=== PATIENT | female | born 1970 | race Two or more races ===

== ENCOUNTER 2016-08-05 04:01 | Emergency (ER) | payer BC ==
[~2016-08-05] VITALS: Ht 157.5 cm; Wt 68.9 kg
[2016-08-05] MEDS ORDERED: ONDANSETRON HCL 4 MG/2 ML VIAL IM ONE (04:45)
[2016-08-05] MEDS ORDERED: HYDROmorphone HCL 2 MG/ML VL IM ONE (04:45)
[2016-08-05 05:40] VITALS: BP 112/62
== END 2016-08-05 05:43 | disposition home or self-care (01) ==
LOC: ER 04:03
DX: M54.12 Radiculopathy, cervical region (principal); M25.511 Pain in right shoulder; F17.210 Nicotine dependence, cigarettes, uncomplicated; Z88.2 Allergy status to sulfonamides
CPT/HCPCS: 72125; 73030; 96372; 99284; J1170; J2405

== ENCOUNTER → 2016-08-28 | Outpatient (CLI) | payer BC ==
[2016-08-28 08:18] LABS: Basophils # (auto) 0 uL; Basophils % (auto) 0.3 % (0.0-2.0); Eosinophils # (auto) 0.1 uL; Eosinophils % (auto) 0.7 % (0.0-7.0); Hematocrit 42.9 % (36.0-46.0); Hemoglobin 14.2 g/dL (12.2-16.2); Lymphocytes # (auto) 5.1 uL; Lymphocytes % (auto) 33.9 % (10.0-50.0); Mean Corpuscular Hgb Conc. 33.2 g/dL (32.0-36.0); Mean Corpuscular Volume 90.5 fL (80.0-100.0); Mean Platelet Volume 8.2 fL (7.4-10.4); Monocytes # (auto) 0.9 uL; Monocytes % (auto) 5.8 % (0.0-12.0); Neutrophils # (auto) 8.9 uL; Neutrophils % (auto) 59.3 % (37.0-80.0); Platelet Count (auto) 332 10^3/uL (140-450); Red Cell Distribution Width 14.7 % (11.6-16.0)
[2016-08-28 08:42] LABS: Albumin 3.6 g/dL (3.4-5.0); BUN/Creatinine Ratio 15.8; Bilirubin, Total 0.4 mg/dL (0.2-1.0); Calcium 8.8 mg/dL (8.5-10.1); Potassium 3.6 mmol/L (3.5-5.1)
[2016-08-28 09:30] LABS: Urine RBC None Seen /hpf (0 - 4)
[2016-08-28 09:50] LABS: Urine Bilirubin Negative (Negative); Urine Blood Negative /uL (Negative); Urine Color Yellow (Yellow); Urine Glucose Normal (Normal); Urine Ketone Negative (Negative); Urine Mucus FEW (None Seen); Urine Nitrite Negative (Negative); Urine Squamous Epithelial Cell FEW /hpf (<5); Urine Urobilinogen Normal (Negative); Urine pH 6.5 (5.0-8.0)
== END | disposition home or self-care (01) ==
LOC: LAB 07:04
PROVIDERS: ATTEND Internal Medicine
DX: R53.83 Other fatigue (principal); Z00.00 Encounter for general adult medical examination without abnormal findings
CPT/HCPCS: 36415; 80053; 80061; 81001; 82306; 82550; 83036; 84443; 85025; 85652; 86141

== ENCOUNTER 2016-12-12 21:39 | Emergency (ER) | payer BC ==
[~2016-12-12] VITALS: Ht 157.5 cm; Wt 70.9 kg
[2016-12-12 22:08] VITALS: BP 129/79
[2016-12-12 22:29] LABS: Urine Bilirubin Negative (Negative); Urine Blood Negative /uL (Negative); Urine Color Yellow (Yellow); Urine Glucose Normal (Normal); Urine Ketone Negative (Negative); Urine Nitrite Negative (Negative); Urine RBC 1 /hpf (0 - 4); Urine Squamous Epithelial Cell FEW /hpf (<5); Urine pH 5.5 (5.0-8.0)
[2016-12-12 23:03] LABS: Basophils # (auto) 0.1 uL; Basophils % (auto) 0.6 % (0.0-2.0); CONDITION Y; Eosinophils # (auto) 0.4 uL; Eosinophils % (auto) 2.4 % (0.0-7.0); Hematocrit 40.8 % (36.0-46.0); Hemoglobin 13.7 g/dL (12.2-16.2); Lymphocytes # (auto) 4.3 uL; Lymphocytes % (auto) 29.5 % (10.0-50.0); Mean Corpuscular Hemoglobin 30.3 pg (28.0-32.0); Mean Corpuscular Hgb Conc. 33.6 g/dL (32.0-36.0); Mean Corpuscular Volume 90.1 fL (80.0-100.0); Mean Platelet Volume 8.1 fL (7.4-10.4); Monocytes # (auto) 0.8 uL; Monocytes % (auto) 5.6 % (0.0-12.0); Neutrophils # (auto) 9.1 uL; Neutrophils % (auto) 61.9 % (37.0-80.0); Platelet Count (auto) 326 10^3/uL (140-450); White Blood Cell 14.6 10^3/uL (4.4-10.8)
[2016-12-12 23:33] LABS: Magnesium 2.2 mg/dL (1.6-2.6); Potassium 4.1 mmol/L (3.5-5.1)
[2016-12-12 23:37] LABS: Albumin 3.6 g/dL (3.4-5.0); BUN/Creatinine Ratio 20.8; Bilirubin, Total 0.2 mg/dL (0.2-1.0); Calcium 8.6 mg/dL (8.5-10.1); Total Protein 7.1 g/dL (6.4-8.2)
== END 2016-12-13 03:29 | disposition left against medical advice (07) ==
LOC: ER 21:58
DX: R10.12 Left upper quadrant pain (principal); R19.7 Diarrhea, unspecified; Z53.21 Procedure and treatment not carried out due to patient leaving prior to being seen by health care provider
CPT/HCPCS: 36415; 80053; 81001; 83690; 83735; 84702; 85025

== ENCOUNTER 2017-01-07 21:58 | Emergency (ER) | payer BC ==
[~2017-01-07] VITALS: Ht 157.5 cm; Wt 69.4 kg
[2017-01-07 22:22] VITALS: BP 140/71
[2017-01-07 22:41] LABS: Urine Bilirubin Negative (Negative); Urine Blood 2+ /uL (Negative); Urine Color Yellow (Yellow); Urine Glucose Normal (Normal); Urine Ketone Negative (Negative); Urine Nitrite Negative (Negative); Urine RBC 1 /hpf (0 - 4); Urine Squamous Epithelial Cell FEW /hpf (<5)
== END 2017-01-08 03:00 | disposition home or self-care (01) ==
LOC: ER 22:03
DX: N34.3 Urethral syndrome, unspecified (principal); Z88.2 Allergy status to sulfonamides
CPT/HCPCS: 81001

== ENCOUNTER → 2017-01-13 | Outpatient (CLI) | payer BC ==
[2017-01-13 10:50] LABS: Urine Bilirubin Negative (Negative); Urine Blood Negative /uL (Negative); Urine Color Yellow (Yellow); Urine Glucose Normal (Normal); Urine Ketone Negative (Negative); Urine Nitrite Negative (Negative); Urine RBC <1 /hpf (0 - 4); Urine Squamous Epithelial Cell FEW /hpf (<5); Urine Urobilinogen Normal (Negative)
== END | disposition home or self-care (01) ==
LOC: LAB 10:12
PROVIDERS: ATTEND Internal Medicine
DX: R10.9 Unspecified abdominal pain (principal)
CPT/HCPCS: 81001; 81025

== ENCOUNTER 2017-01-14 19:31 | Emergency (ER) | payer BC ==
[~2017-01-14] VITALS: Ht 157.5 cm; Wt 70.3 kg
[2017-01-14 21:21] LABS: Basophils # (auto) 0.2 uL; Basophils % (auto) 1.2 % (0.0-2.0); CONDITION Y; Eosinophils # (auto) 0.3 uL; Eosinophils % (auto) 2.6 % (0.0-7.0); Hematocrit 41.5 % (36.0-46.0); Lymphocytes # (auto) 4.4 uL; Lymphocytes % (auto) 33.8 % (10.0-50.0); Mean Corpuscular Hgb Conc. 33.7 g/dL (32.0-36.0); Mean Platelet Volume 7.9 fL (7.4-10.4); Monocytes # (auto) 0.9 uL; Monocytes % (auto) 6.7 % (0.0-12.0); Neutrophils # (auto) 7.3 uL; Neutrophils % (auto) 55.7 % (37.0-80.0); Platelet Count (auto) 292 10^3/uL (140-450); Red Cell Distribution Width 14.2 % (11.6-16.0)
[2017-01-14 21:39] LABS: Albumin 3.7 g/dL (3.4-5.0); BUN/Creatinine Ratio 18.3; Calcium 8.4 mg/dL (8.5-10.1)
[2017-01-14 21:42] LABS: Bilirubin, Total 0.2 mg/dL (0.2-1.0); Total Protein 7.3 g/dL (6.4-8.2)
[2017-01-15] MEDS ORDERED: MORPHINE SULF INJ 2 MG/ML SYRINGE 1ML IV ONE (00:15)
[2017-01-15] MEDS ORDERED: ONDANSETRON HCL 4 MG/2 ML VIAL IV ONE (00:15)
[2017-01-15] MEDS ORDERED: SODIUM CHLORIDE 0.9% 1,000 ML IV ONE (00:15)
[2017-01-15] MEDS ORDERED: metroNIDAZOLE 500MG/100ML 100 ML IV ONE (00:15)
[2017-01-15] MEDS ORDERED: cefTRIAXone 1GM/50ML D5W 50 ML IV ONE (00:15)
[2017-01-15 04:58] LABS: Urine Bilirubin Negative (Negative); Urine Blood 2+ /uL (Negative); Urine Color Yellow (Yellow); Urine Glucose Normal (Normal); Urine Ketone Negative (Negative); Urine Nitrite Negative (Negative); Urine RBC 1 /hpf (0 - 4); Urine Squamous Epithelial Cell FEW /hpf (<5); Urine Urobilinogen Normal (Negative); Urine pH 5.5 (5.0-8.0)
[2017-01-15 06:05] VITALS: BP 104/68
== END 2017-01-15 06:45 | disposition home or self-care (01) ==
LOC: ER 19:31
DX: K52.9 Noninfective gastroenteritis and colitis, unspecified (principal); F17.210 Nicotine dependence, cigarettes, uncomplicated; Z88.8 Allergy status to other drugs, medicaments and biological substances
CPT/HCPCS: 36415; 74176; 80053; 81001; 83690; 84702; 85025; 96365; 96366; 96368; 96375; 99285; J0696; J2270; J2405; J3490; J7030

== ENCOUNTER 2017-04-10 21:26 | Emergency (ER) | payer BC ==
[~2017-04-10] VITALS: Ht 154.9 cm; Wt 70.3 kg
[2017-04-10 21:41] VITALS: BP 122/75
[2017-04-11] MEDS ORDERED: ceFAZolin 1GM/50ML 50 ML IV ONE (07:26)
== END 2017-04-11 04:13 | disposition left against medical advice (07) ==
LOC: ER 21:26
DX: R51 Headache (principal); R11.0 Nausea; Z53.21 Procedure and treatment not carried out due to patient leaving prior to being seen by health care provider
CPT/HCPCS: 70450; 99281; J0690

== ENCOUNTER 2017-04-11 07:22 | Inpatient (IN) | payer BC ==
[2017-04-08 13:02] LABS: Basophils # (auto) 0.1 uL; Basophils % (auto) 0.4 % (0.0-2.0); Eosinophils # (auto) 0.2 uL; Eosinophils % (auto) 1.6 % (0.0-7.0); Hematocrit 43.6 % (36.0-46.0); Hemoglobin 14.4 g/dL (12.2-16.2); Lymphocytes # (auto) 3.4 uL; Lymphocytes % (auto) 25.5 % (10.0-50.0); Mean Corpuscular Hemoglobin 30.2 pg (28.0-32.0); Mean Corpuscular Hgb Conc. 33.1 g/dL (32.0-36.0); Mean Corpuscular Volume 91.1 fL (80.0-100.0); Mean Platelet Volume 7.9 fL (6.9-10.8); Monocytes # (auto) 0.7 uL; Monocytes % (auto) 5.4 % (0.0-12.0); Neutrophils % (auto) 67.1 % (37.0-80.0); Nucleated Red Blood Cells % 0.1 %; Platelet Count (auto) 293 10^3/uL (140-450); Red Cell Distribution Width 14.8 % (11.8-14.3); White Blood Cell 13.4 10^3/uL (4.4-10.8)
[2017-04-08 13:11] LABS: INR 0.92 (0.9-1.15); Partial Thromboplastin Time 29.6 sec (22.64-33.71)
[2017-04-08 13:13] LABS: Urine Bilirubin Negative (Negative); Urine Blood 2+ /uL (Negative); Urine Color Yellow (Yellow); Urine Glucose Normal (Normal); Urine Ketone Negative (Negative); Urine Nitrite Negative (Negative); Urine Urobilinogen Normal (Negative); Urine pH 6.5 (5.0-8.0)
[2017-04-08 13:54] LABS: Albumin 3.9 g/dL (3.4-5.0); BUN/Creatinine Ratio 23.2; Bilirubin, Total 0.3 mg/dL (0.2-1.0); Calcium 9.2 mg/dL (8.5-10.1); Potassium 4.3 mmol/L (3.5-5.1); Total Protein 7.7 g/dL (6.4-8.2)
[~2017-04-11] VITALS: Ht 154.9 cm; Wt 77.2 kg
[2017-04-11] MEDS ORDERED: PROPOFOL 10 MG/ML 20 ML IV ONE (07:34)
[2017-04-11] MEDS ORDERED: ONDANSETRON HCL 4 MG/2 ML VIAL ONE (07:34)
[2017-04-11] MEDS ORDERED: fentaNYL CITRATE 100 MCG/2 ML VL ONE (07:34)
[2017-04-11] MEDS ORDERED: MIDAZOLAM HCL 1MG/1ML-2 ML VIAL ONE (07:34)
[2017-04-11] MEDS ORDERED: METOCLOPRAMIDE HCL 5MG/ml INJ 2ml VIAL IV ONE (09:15)
[2017-04-11] MEDS ORDERED: KETOROLAC TROMETH 30 MG/ML 1ML VIAL IV ONE (09:15)
[2017-04-11] MEDS ORDERED: ceFAZolin 1GM VL IV ONE (09:46)
[2017-04-11] MEDS ORDERED: ONDANSETRON HCL 4 MG/2 ML VIAL IV PRN (10:45)
[2017-04-11] MEDS: HYDROmorphone HCL 2 MG/ML VL IV PRN ×3 (11:00→11:17)
[2017-04-11 12:43] LABS: Basophils # (auto) 0 uL; Basophils % (auto) 0.4 % (0.0-2.0); Eosinophils # (auto) 0.2 uL; Eosinophils % (auto) 1.7 % (0.0-7.0); Hematocrit 41.4 % (36.0-46.0); Hemoglobin 13.7 g/dL (12.2-16.2); Lymphocytes # (auto) 2.7 uL; Lymphocytes % (auto) 24.4 % (10.0-50.0); Mean Platelet Volume 7.3 fL (6.9-10.8); Monocytes # (auto) 0.7 uL; Monocytes % (auto) 6.2 % (0.0-12.0); Neutrophils # (auto) 7.3 uL; Neutrophils % (auto) 67.3 % (37.0-80.0); Nucleated Red Blood Cells % 0.1 %; Platelet Count (auto) 259 10^3/uL (140-450); Red Cell Distribution Width 14.7 % (11.8-14.3); White Blood Cell 10.9 10^3/uL (4.4-10.8)
[2017-04-11 13:02] LABS: BUN/Creatinine Ratio 13.2; Calcium 8.7 mg/dL (8.5-10.1); Potassium 4.2 mmol/L (3.5-5.1)
[2017-04-11] MEDS ORDERED: HYDROmorphone HCL 2 MG/ML VL IV PRN (13:30)
[2017-04-11] MEDS ORDERED: NITROGLYCERIN 0.4 MG SL TAB SL PRN ×2 (13:30)
[2017-04-11] MEDS: SODIUM CHLOR 0.9% PF (SALINE LOCK) 10ML VIAL IV SCH (14:00)
[2017-04-11 16:10] VITALS: BP 99/50
[2017-04-11 17:00] VITALS: BP 99/50
[2017-04-11] MEDS: LACTATED RINGER'S 1,000 ML IV SCH ×3 (17:12→23:52)
[2017-04-11 17:40] VITALS: BP 99/50
[2017-04-11] MEDS ORDERED: ACETAMINOPHEN 325 MG TAB PO PRN (18:30)
[2017-04-11] MEDS ORDERED: ASPirin-EC 81 mg tab PO ONE (18:45)
[2017-04-11] MEDS ORDERED: ATORVASTATIN 20 MG TAB PO ONE (18:45)
[2017-04-11] MEDS ORDERED: SODIUM CHLORIDE 0.9% 2,250 ML IV ONE (18:45)
[2017-04-11] MEDS ORDERED: IBUPROFEN 600 MG TAB PO PRN (19:00)
[2017-04-11] MEDS ORDERED: ENOXAPARIN SOD 30 MG/0.3 ML SYRINGE IV ONE (19:30)
[2017-04-11] MEDS ORDERED: LEVOFLOXACIN 500MG 100 ML IV ONE (19:45)
[2017-04-11] MEDS ORDERED: ALBUTEROL SULF 2.5 MG/0.5ML(0.5%) NEB SOLN NEB PRN (19:45)
[2017-04-11 20:00] VITALS: BP 127/79
[2017-04-11] MEDS: HYDROcodone-ACET 5/325MG TAB PO PRN (20:33)
[2017-04-11 20:38] LABS: Hematocrit 37.3 % (36.0-46.0); Hemoglobin 12.4 g/dL (12.2-16.2)
[2017-04-12] VITALS (7 sets, daily range): BP systolic 104–127; BP diastolic 52–84
[2017-04-12] MEDS: SODIUM CHLOR 0.9% PF (SALINE LOCK) 10ML VIAL IV SCH ×4 (03:35→22:53)
[2017-04-12 05:29] LABS: Basophils # (auto) 0 uL; Basophils % (auto) 0.4 % (0.0-2.0); Eosinophils # (auto) 0.2 uL; Eosinophils % (auto) 1.9 % (0.0-7.0); Hematocrit 36.8 % (36.0-46.0); Hemoglobin 12.4 g/dL (12.2-16.2); Lymphocytes # (auto) 3.2 uL; Mean Corpuscular Hemoglobin 30.5 pg (28.0-32.0); Mean Corpuscular Hgb Conc. 33.6 g/dL (32.0-36.0); Mean Corpuscular Volume 90.6 fL (80.0-100.0); Mean Platelet Volume 7.6 fL (6.9-10.8); Monocytes # (auto) 0.6 uL; Monocytes % (auto) 5.8 % (0.0-12.0); Neutrophils # (auto) 6.2 uL; Neutrophils % (auto) 60.9 % (37.0-80.0); Platelet Count (auto) 245 10^3/uL (140-450); Red Cell Distribution Width 14.5 % (11.8-14.3); White Blood Cell 10.2 10^3/uL (4.4-10.8)
[2017-04-12 06:04] LABS: BUN/Creatinine Ratio 15.5; Bilirubin, Total 0.4 mg/dL (0.2-1.0); Potassium 3.7 mmol/L (3.5-5.1)
[2017-04-12] MEDS: LACTATED RINGER'S 1,000 ML IV SCH ×3 (06:32→19:52)
[2017-04-12] MEDS: LORazepam 0.5 MG TAB PO PRN ×2 (10:40→19:51)
[2017-04-12] MEDS: ASPirin-EC 81 mg tab PO SCH (10:42)
[2017-04-12] MEDS: NICOTINE 14 MG/24HR TOPICAL PATCH TD SCH (10:42)
[2017-04-12] MEDS: LEVOFLOXACIN 500MG 100 ML IV SCH (10:43)
[2017-04-12] MEDS: HYDROmorphone HCL 2 MG/ML VL IV PRN ×2 (11:58→19:51)
[2017-04-12] MEDS ORDERED: ENOXAPARIN SOD 30 MG/0.3 ML SYRINGE IV ONE (12:45)
[2017-04-12] MEDS ORDERED: AZITHROMYCIN 250 MG TAB PO ONE (13:45)
[2017-04-12] MEDS: BOOST PLUS 8 ounce PO SCH (17:34)
[2017-04-12] MEDS: ATORVASTATIN 20 MG TAB PO SCH (22:54)
[2017-04-13] VITALS (7 sets, daily range): BP systolic 91–132; BP diastolic 62–72
[2017-04-13] MEDS: LACTATED RINGER'S 1,000 ML IV SCH ×3 (02:32→15:52)
[2017-04-13] MEDS: HYDROmorphone HCL 2 MG/ML VL IV PRN ×4 (02:37→23:15)
[2017-04-13 05:26] LABS: Basophils # (auto) 0 uL; Basophils % (auto) 0.5 % (0.0-2.0); Eosinophils # (auto) 0.3 uL; Eosinophils % (auto) 3.2 % (0.0-7.0); Hematocrit 39.4 % (36.0-46.0); Hemoglobin 13.1 g/dL (12.2-16.2); Lymphocytes # (auto) 2.5 uL; Lymphocytes % (auto) 29.8 % (10.0-50.0); Mean Corpuscular Hemoglobin 30.3 pg (28.0-32.0); Mean Corpuscular Hgb Conc. 33.3 g/dL (32.0-36.0); Mean Corpuscular Volume 91.1 fL (80.0-100.0); Mean Platelet Volume 7.5 fL (6.9-10.8); Monocytes # (auto) 0.6 uL; Monocytes % (auto) 7.4 % (0.0-12.0); Neutrophils # (auto) 4.9 uL; Neutrophils % (auto) 59.1 % (37.0-80.0); Platelet Count (auto) 250 10^3/uL (140-450); Red Cell Distribution Width 14.2 % (11.8-14.3); White Blood Cell 8.4 10^3/uL (4.4-10.8)
[2017-04-13 05:41] LABS: Albumin 3.1 g/dL (3.4-5.0); BUN/Creatinine Ratio 16.1; Calcium 8.1 mg/dL (8.5-10.1); Potassium 3.9 mmol/L (3.5-5.1)
[2017-04-13] MEDS: SODIUM CHLOR 0.9% PF (SALINE LOCK) 10ML VIAL IV SCH ×3 (05:56→22:00)
[2017-04-13 05:58] LABS: Bilirubin, Total 0.2 mg/dL (0.2-1.0); Total Protein 6.3 g/dL (6.4-8.2)
[2017-04-13] MEDS: BOOST PLUS 8 ounce PO SCH ×3 (08:00→18:00)
[2017-04-13] MEDS ORDERED: DOCUSATE SOD 100 MG CAP PO PRN (09:00)
[2017-04-13] MEDS: ASPirin-EC 81 mg tab PO SCH (09:34)
[2017-04-13] MEDS: AZITHROMYCIN 250 MG TAB PO SCH (09:35)
[2017-04-13] MEDS: LEVOFLOXACIN 500MG 100 ML IV SCH (09:35)
[2017-04-13] MEDS: NICOTINE 14 MG/24HR TOPICAL PATCH TD SCH (10:00)
[2017-04-13] MEDS: LORazepam 0.5 MG TAB PO PRN (12:39)
[2017-04-13] MEDS: ATORVASTATIN 20 MG TAB PO SCH (22:00)
[2017-04-14] VITALS: BP 104/58
[2017-04-14 05:23] LABS: Basophils # (auto) 0.1 uL; Basophils % (auto) 0.7 % (0.0-2.0); Eosinophils # (auto) 0.3 uL; Hemoglobin 13.9 g/dL (12.2-16.2); Lymphocytes % (auto) 35.9 % (10.0-50.0); Mean Corpuscular Hemoglobin 29.9 pg (28.0-32.0); Mean Corpuscular Hgb Conc. 33.1 g/dL (32.0-36.0); Mean Corpuscular Volume 90.2 fL (80.0-100.0); Mean Platelet Volume 7.6 fL (6.9-10.8); Monocytes # (auto) 0.6 uL; Monocytes % (auto) 7.1 % (0.0-12.0); Neutrophils # (auto) 4.4 uL; Neutrophils % (auto) 52.3 % (37.0-80.0); Nucleated Red Blood Cells % 0.1 %; Platelet Count (auto) 261 10^3/uL (140-450); Red Cell Distribution Width 14.4 % (11.8-14.3); White Blood Cell 8.4 10^3/uL (4.4-10.8)
[2017-04-14 05:42] LABS: Albumin 3.2 g/dL (3.4-5.0); BUN/Creatinine Ratio 19.7; Calcium 8.5 mg/dL (8.5-10.1); Potassium 3.8 mmol/L (3.5-5.1)
[2017-04-14 05:58] LABS: Bilirubin, Total 0.2 mg/dL (0.2-1.0); Total Protein 6.6 g/dL (6.4-8.2)
[2017-04-14] MEDS: SODIUM CHLOR 0.9% PF (SALINE LOCK) 10ML VIAL IV SCH ×3 (06:00→21:05)
[2017-04-14 08:00] VITALS: BP 126/78
[2017-04-14] MEDS: BOOST PLUS 8 ounce PO SCH ×3 (08:00→18:11)
[2017-04-14] MEDS ORDERED: LIDOCAINE 2%HCL (LOCAL ANESTH.) INJ 20ML MDV ONE (08:46)
[2017-04-14] MEDS ORDERED: IOHEXOL 350 MG/ML 100ML IJ ONE ×2 (08:46→09:53)
[2017-04-14] MEDS ORDERED: MIDAZOLAM HCL 1MG/1ML-2 ML VIAL ONE (09:55)
[2017-04-14] MEDS ORDERED: fentaNYL CITRATE 100 MCG/2 ML VL ONE (09:55)
[2017-04-14] MEDS ORDERED: SODIUM CHL 0.9% 50 ML ONE ×2 (09:58)
[2017-04-14] MEDS ORDERED: ANGIOMAX 250 MG VIAL IV ONE (09:58)
[2017-04-14] MEDS ORDERED: CLOPIDOGREL 300 MG TAB ONE (10:14)
[2017-04-14] MEDS: ASPirin-EC 81 mg tab PO SCH (11:26)
[2017-04-14] MEDS: AZITHROMYCIN 250 MG TAB PO SCH (11:26)
[2017-04-14] MEDS: LEVOFLOXACIN 500MG 100 ML IV SCH (11:26)
[2017-04-14] MEDS: NICOTINE 14 MG/24HR TOPICAL PATCH TD SCH (11:31)
[2017-04-14 11:42] VITALS: BP 110/74
[2017-04-14] MEDS: HYDROcodone-ACET 5/325MG TAB PO PRN (14:21)
[2017-04-14] MEDS: LORazepam 0.5 MG TAB PO PRN ×2 (14:21→20:29)
[2017-04-14 16:00] VITALS: BP 114/67
[2017-04-14 20:00] VITALS: BP 131/77
[2017-04-14] MEDS: ATORVASTATIN 20 MG TAB PO SCH (20:29)
[2017-04-14] MEDS: HYDROmorphone HCL 2 MG/ML VL IV PRN (21:05)
[2017-04-15] VITALS: BP 103/62
[2017-04-15 03:49] VITALS: BP 99/65
[2017-04-15 05:17] LABS: Calcium 8.9 mg/dL (8.5-10.1); Potassium 3.7 mmol/L (3.5-5.1)
[2017-04-15] MEDS: SODIUM CHLOR 0.9% PF (SALINE LOCK) 10ML VIAL IV SCH (05:44)
[2017-04-15 07:30] VITALS: BP 109/61
[2017-04-15] MEDS: BOOST PLUS 8 ounce PO SCH (08:04)
[2017-04-15] MEDS ORDERED: ASP81EC PO (08:46)
[2017-04-15] MEDS ORDERED: METO50TA7 PO (08:46)
[2017-04-15] MEDS ORDERED: ATOR20TA50 PO (08:46)
[2017-04-15] MEDS ORDERED: CLOP75TA28 PO (08:46)
[2017-04-15] MEDS: ASPirin-EC 81 mg tab PO SCH (09:09)
[2017-04-15] MEDS: AZITHROMYCIN 250 MG TAB PO SCH (09:09)
[2017-04-15] MEDS: NICOTINE 14 MG/24HR TOPICAL PATCH TD SCH (09:12)
[2017-04-15] MEDS ORDERED: METOPROLOL SUCCINATE XL 50 MG TAB PO SCH (10:00)
[2017-04-15] MEDS ORDERED: CLOPIDOGREL BISULFATE 75 MG TAB PO SCH (10:00)
[2017-04-15 10:09] VITALS: BP 109/61
[2017-04-15 10:19] VITALS: BP 109/61
[2017-04-15 10:31] VITALS: BP 109/61
== END 2017-04-15 11:15 | disposition home or self-care (01) | DRG 246 ==
LOC: SUR 07:22 → WEST WING 07:23 → DOU IN ICU 20:19
PROVIDERS: ADMIT Specialist; ATTEND Internal Medicine
PROC: 0UDB8ZZ Extraction of Endometrium, Via Natural or Artificial Opening Endoscopic (ICD-10-PCS; principal; 2017-04-11 09:46)
PROC: 027034Z Dilation of Coronary Artery, One Artery with Drug-eluting Intraluminal Device, Percutaneous Approach (ICD-10-PCS; 2017-04-14)
PROC: 4A023N7 Measurement of Cardiac Sampling and Pressure, Left Heart, Percutaneous Approach (ICD-10-PCS; 2017-04-14)
PROC: B2111ZZ Fluoroscopy of Multiple Coronary Arteries using Low Osmolar Contrast (ICD-10-PCS; 2017-04-14)
PROC: B2151ZZ Fluoroscopy of Left Heart using Low Osmolar Contrast (ICD-10-PCS; 2017-04-14)
DX: I21.4 Non-ST elevation (NSTEMI) myocardial infarction (principal); J18.9 Pneumonia, unspecified organism; E44.0 Moderate protein-calorie malnutrition; I42.9 Cardiomyopathy, unspecified; J98.11 Atelectasis; E78.00 Pure hypercholesterolemia, unspecified; E78.5 Hyperlipidemia, unspecified; F17.210 Nicotine dependence, cigarettes, uncomplicated; I25.10 Atherosclerotic heart disease of native coronary artery without angina pectoris; K57.90 Diverticulosis of intestine, part unspecified, without perforation or abscess without bleeding; N85.4 Malposition of uterus; N92.0 Excessive and frequent menstruation with regular cycle; Z95.5 Presence of coronary angioplasty implant and graft; Z68.32 Body mass index [BMI] 32.0-32.9, adult
CPT/HCPCS: 36415; 71010; 80048; 80053; 80061; 81003; 84484; 84702; 85014; 85018; 85025; 85610; 85730; 86850; 86900; 86901; 87081; 93005; 93306; 99152; 99153; C1874; J0690; J1956; J2250; J2405; J2704

== ENCOUNTER → 2017-06-11 | Outpatient (CLI) | payer BC ==
[~2017-06-11] VITALS: Ht 154.9 cm; Wt 69.4 kg
[~2017-06-11] MED LIST: ASP81EC PO; ATOR20TA50 PO; CLOP75TA28 PO; METO50TA7 PO
== END | disposition home or self-care (01) ==
LOC: Rad HDHVI 07:59
PROVIDERS: ATTEND Internal Medicine Cardiovascular Disease
DX: I20.0 Unstable angina (principal); I21.09 ST elevation (STEMI) myocardial infarction involving other coronary artery of anterior wall
CPT/HCPCS: 78452; 93017; 96374; A9500

== ENCOUNTER 2017-06-28 09:20 | Emergency (ER) | payer BC ==
[~2017-06-28] VITALS: Ht 157.5 cm; Wt 69.4 kg
[2017-06-28 10:22] VITALS: BP 128/77
== END 2017-06-28 11:30 | disposition home or self-care (01) ==
LOC: ER 09:20
DX: N61.0 Mastitis without abscess (principal); F17.210 Nicotine dependence, cigarettes, uncomplicated; Z88.2 Allergy status to sulfonamides; Z98.51 Tubal ligation status

== ENCOUNTER 2017-07-22 06:06 | Emergency (ER) | payer BC ==
[~2017-07-22] VITALS: Ht 162.6 cm; Wt 68.5 kg
[2017-07-22 07:10] LABS: Basophils # (auto) 0.1 uL; Basophils % (auto) 0.6 % (0.0-2.0); Eosinophils # (auto) 0.2 uL; Eosinophils % (auto) 1.4 % (0.0-7.0); Hematocrit 41.7 % (36.0-46.0); Hemoglobin 13.7 g/dL (12.2-16.2); Lymphocytes # (auto) 2.3 uL; Lymphocytes % (auto) 19.4 % (10.0-50.0); Mean Corpuscular Hemoglobin 30.1 pg (28.0-32.0); Mean Corpuscular Volume 91.3 fL (80.0-100.0); Monocytes # (auto) 0.7 uL; Monocytes % (auto) 5.6 % (0.0-12.0); Neutrophils # (auto) 8.8 uL; Platelet Count (auto) 291 10^3/uL (140-450); Red Blood Cells 4.56 10^6/uL (4.0-5.20); Red Cell Distribution Width 14.2 % (11.8-14.3)
[2017-07-22 07:23] LABS: Albumin 3.7 g/dL (3.4-5.0); Anion Gap 4 (5-15); Blood Urea Nitrogen 9 mg/dL (7-18); Calcium 8.7 mg/dL (8.5-10.1); Carbon Dioxide 28 mmol/L (21-32); Chloride 105 mmol/L (98-107); Glucose 102 mg/dL (74-106); Potassium 3.9 mmol/L (3.5-5.1); Sodium 137 mmol/L (136-145)
[2017-07-22 07:26] LABS: Alanine Aminotransferase 23 U/L (13-56)
[2017-07-22 07:47] LABS: Alkaline Phosphatase 61 U/L (45-117); Aspartate Aminotransferase 20 U/L (15-37); BUN/Creatinine Ratio 11.4; Bilirubin, Total 0.4 mg/dL (0.2-1.0); GFR African American 101 mL/min; GFR Non-African American 83 mL/min
[2017-07-22 08:26] LABS: Urine Bacteria FEW /hpf (None Seen); Urine Blood 3+ /uL (Negative); Urine Mucus FEW (None Seen); Urine Specific Gravity 1.019 (1.001-1.035); Urine WBC 16 /hpf (0 - 5)
[2017-07-22 10:27] VITALS: BP 117/72
== END 2017-07-22 10:28 | disposition home or self-care (01) ==
LOC: ER 06:06 → EDBD 06:06 → ER 10:28
DX: R07.89 Other chest pain (principal); N39.0 Urinary tract infection, site not specified; I25.2 Old myocardial infarction; F17.210 Nicotine dependence, cigarettes, uncomplicated; Z88.2 Allergy status to sulfonamides; Z79.82 Long term (current) use of aspirin; Z79.01 Long term (current) use of anticoagulants; Z79.899 Other long term (current) drug therapy
CPT/HCPCS: 36415; 71045; 80053; 81001; 81025; 83880; 84484; 85025; 93005

== ENCOUNTER → 2017-09-24 | Outpatient (CLI) | payer BC ==
[2017-09-24 16:24] LABS: Basophils # (auto) 0 uL; Basophils % (auto) 0.4 % (0.0-2.0); Eosinophils # (auto) 0.2 uL; Eosinophils % (auto) 1.5 % (0.0-7.0); Hematocrit 43.3 % (36.0-46.0); Hemoglobin 14.2 g/dL (12.2-16.2); Lymphocytes # (auto) 3.2 uL; Mean Corpuscular Hemoglobin 29.6 pg (28.0-32.0); Mean Corpuscular Hgb Conc. 32.7 g/dL (32.0-36.0); Mean Corpuscular Volume 90.5 fL (80.0-100.0); Monocytes # (auto) 0.6 uL; Monocytes % (auto) 4.4 % (0.0-12.0); Neutrophils # (auto) 8.8 uL; Neutrophils % (auto) 68.7 % (37.0-80.0); Nucleated Red Blood Cells % 0.5 %; Platelet Count (auto) 308 10^3/uL (140-450); Red Blood Cells 4.78 10^6/uL (4.0-5.20); Red Cell Distribution Width 14.6 % (11.8-14.3); White Blood Cell 12.8 10^3/uL (4.4-10.8)
[2017-09-24 16:27] LABS: Alanine Aminotransferase 27 U/L (13-56); Albumin 4.1 g/dL (3.4-5.0); Alkaline Phosphatase 65 U/L (45-117); Anion Gap 9 (5-15); Aspartate Aminotransferase 18 U/L (15-37); BUN/Creatinine Ratio 12.5; Bilirubin, Direct < 0.1 mg/dL (0-0.2); Bilirubin, Total 0.2 mg/dL (0.2-1.0); Blood Urea Nitrogen 9 mg/dL (7-18); Calcium 9.2 mg/dL (8.5-10.1); Carbon Dioxide 24 mmol/L (21-32); Chloride 106 mmol/L (98-107); Cholesterol 239 mg/dL (< 200); GFR African American 112 mL/min; GFR Non-African American 93 mL/min; Glucose 96 mg/dL (74-106); HDL Cholesterol 42 mg/dL (40-59); LDL Cholesterol 163 mg/dL (< 100); Potassium 3.7 mmol/L (3.5-5.1); Sodium 139 mmol/L (136-145); Total Protein 8.1 g/dL (6.4-8.2); Triglycerides 240 mg/dL (< 150)
== END | disposition home or self-care (01) ==
LOC: LAB 11:30
PROVIDERS: ATTEND Internal Medicine Cardiovascular Disease
DX: E78.5 Hyperlipidemia, unspecified (principal); D64.9 Anemia, unspecified; I10 Essential (primary) hypertension; K74.1 Hepatic sclerosis; E11.9 Type 2 diabetes mellitus without complications; E03.9 Hypothyroidism, unspecified; E55.9 Vitamin D deficiency, unspecified
CPT/HCPCS: 36415; 80048; 80061; 80076; 82306; 83036; 84439; 84443; 85025

== ENCOUNTER → 2018-04-06 | Outpatient (CLI) | payer BC ==
[~2018-04-06] MED LIST changes: +MET5XLT PO; -METO50TA7 PO
[2018-04-06 12:35] LABS: Alanine Aminotransferase 36 U/L (13-56); Albumin 3.6 g/dL (3.4-5.0); Aspartate Aminotransferase 23 U/L (15-37); Bilirubin, Direct < 0.1 mg/dL (0-0.2)
[2018-04-06 12:38] LABS: Alkaline Phosphatase 64 U/L (45-117); Bilirubin, Total 0.2 mg/dL (0.2-1.0); Cholesterol 200 mg/dL (< 200); HDL Cholesterol 45 mg/dL (40-59); LDL Cholesterol 137 mg/dL (< 100); Total Protein 7.4 g/dL (6.4-8.2); Triglycerides 101 mg/dL (< 150)
== END | disposition home or self-care (01) ==
LOC: LAB 07:57
PROVIDERS: ATTEND Internal Medicine Cardiovascular Disease
DX: E78.5 Hyperlipidemia, unspecified (principal); K74.1 Hepatic sclerosis
CPT/HCPCS: 36415; 80061; 80076

== ENCOUNTER → 2018-10-09 | Outpatient (CLI) | payer BC ==
[2018-10-09 08:19] LABS: Urine WBC None Seen /hpf (0 - 5)
[2018-10-09 08:32] LABS: Basophils # (auto) 0 uL; Basophils % (auto) 0.5 % (0.0-2.0); Eosinophils # (auto) 0.2 uL; Eosinophils % (auto) 3.1 % (0.0-7.0); Hematocrit 41.4 % (36.0-46.0); Hemoglobin 13.4 g/dL (12.2-16.2); Lymphocytes # (auto) 2.1 uL; Lymphocytes % (auto) 27.8 % (10.0-50.0); Mean Corpuscular Hemoglobin 28.8 pg (28.0-32.0); Mean Corpuscular Hgb Conc. 32.5 g/dL (32.0-36.0); Mean Corpuscular Volume 88.6 fL (80.0-100.0); Monocytes # (auto) 0.5 uL; Monocytes % (auto) 7.4 % (0.0-12.0); Neutrophils # (auto) 4.5 uL; Neutrophils % (auto) 61.2 % (37.0-80.0); Nucleated Red Blood Cells % 0.1 %; Platelet Count (auto) 252 10^3/uL (140-450); Red Blood Cells 4.67 10^6/uL (4.0-5.20); Red Cell Distribution Width 14.9 % (11.8-14.3); White Blood Cell 7.4 10^3/uL (4.4-10.8)
[2018-10-09 08:42] LABS: Urine Bacteria NONE SEEN /hpf (None Seen); Urine Blood Negative /uL (Negative); Urine Specific Gravity 1.016 (1.001-1.035)
[2018-10-09 09:23] LABS: Calcium 8.8 mg/dL (8.5-10.1); Potassium 4.1 mmol/L (3.5-5.1)
[2018-10-09 09:27] LABS: Folate (Folic Acid) 16.99 ng/mL (5.38-24)
[2018-10-09 09:30] LABS: Albumin 3.8 g/dL (3.4-5.0); BUN/Creatinine Ratio 17.1; Bilirubin, Total 0.4 mg/dL (0.2-1.0); Total Protein 7.1 g/dL (6.4-8.2)
== END | disposition home or self-care (01) ==
LOC: LAB 07:12
PROVIDERS: ATTEND Nurse Practitioner
DX: E78.5 Hyperlipidemia, unspecified (principal)
CPT/HCPCS: 36415; 80053; 80061; 81001; 82306; 82607; 82746; 83036; 84443; 85025

== ENCOUNTER → 2018-12-24 | Outpatient (CLI) | payer BC ==
[~2018-12-24] VITALS: Ht 154.9 cm; Wt 68.5 kg
[~2018-12-24] MED LIST changes: -MET5XLT PO; +METO-6 PO
[2018-12-24 12:00] LABS: Basophils # (auto) 0 uL; Basophils % (auto) 0.5 % (0.0-2.0); Eosinophils # (auto) 0.1 uL; Eosinophils % (auto) 1.9 % (0.0-7.0); Hematocrit 36.5 % (36.0-46.0); Lymphocytes # (auto) 1.8 uL; Lymphocytes % (auto) 26.1 % (10.0-50.0); Mean Corpuscular Hemoglobin 28.2 pg (28.0-32.0); Mean Corpuscular Hgb Conc. 32.8 g/dL (32.0-36.0); Mean Corpuscular Volume 86.1 fL (80.0-100.0); Monocytes # (auto) 0.4 uL; Monocytes % (auto) 5.9 % (0.0-12.0); Neutrophils # (auto) 4.4 uL; Neutrophils % (auto) 65.6 % (37.0-80.0); Platelet Count (auto) 255 10^3/uL (140-450); Red Blood Cells 4.23 10^6/uL (4.0-5.20); Red Cell Distribution Width 13.7 % (11.8-14.3); White Blood Cell 6.8 10^3/uL (4.4-10.8)
[2018-12-24 12:09] LABS: Urine Blood Negative /uL (Negative); Urine Specific Gravity 1.013 (1.001-1.035)
[2018-12-24 12:21] LABS: Albumin 3.6 g/dL (3.4-5.0); Calcium 8.5 mg/dL (8.5-10.1); Potassium 3.9 mmol/L (3.5-5.1)
[2018-12-24 12:28] LABS: BUN/Creatinine Ratio 16.3; Bilirubin, Total 0.3 mg/dL (0.2-1.0); Total Protein 7.1 g/dL (6.4-8.2)
[2018-12-24 14:44] LABS: Free T4 (Free Thyroxine) 0.87 ng/dL (0.89-1.76)
== END | disposition home or self-care (01) ==
LOC: Rad HDHVI 08:05
PROVIDERS: ATTEND Internal Medicine Cardiovascular Disease
DX: Z00.00 Encounter for general adult medical examination without abnormal findings (principal); E03.9 Hypothyroidism, unspecified; E55.9 Vitamin D deficiency, unspecified; N39.0 Urinary tract infection, site not specified; D51.9 Vitamin B12 deficiency anemia, unspecified; K90.9 Intestinal malabsorption, unspecified; Z95.5 Presence of coronary angioplasty implant and graft; E78.5 Hyperlipidemia, unspecified; J44.9 Chronic obstructive pulmonary disease, unspecified; Z79.899 Other long term (current) drug therapy
CPT/HCPCS: 36415; 78452; 80053; 80061; 81003; 82306; 82607; 83036; 84439; 84443; 85025; 93017; 93306; 96374; A9500